=== PATIENT | female | born 1975 | race Caucasian/White ===

== ENCOUNTER 2018-02-26 01:46 | Emergency (ER) | payer OTHER ==
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
[2018-02-26 02:55] LABS: Urine Appearance Turbid; Urine Blood 1+ (Negative); Urine Color Yellow; Urine Ketones Negative (Negative); Urine Protein 2+(100 mg/dL) (Negative); Urine Red Blood Cell 3+(>10/hpf) (Absent); Urine Specific Gravity 1.023 (1.010-1.030); Urine Urobilinogen Negative (Negative); Urine White Blood Cell 3+(>20/hpf) (Absent)
[2018-02-26] MEDS ORDERED: Sulfamethox/Trimethoprim DS 800/160* TAB PO ONE (03:23)
[2018-02-26] MEDS ORDERED: Phenazopyridine TAB* 100 MG PO ONE (03:23)
[2018-02-26 04:04] VITALS: BP 127/79
--- NOTE | 2018-02-28 06:15 | PN ---
Progress Note - Progress Note Date of Service: 02/28/18 Note: patient urine culture grew E coli >100,000. patient placed on bactrim. will wait for final culture for sensitivity.
== END 2018-02-26 04:03 | disposition home or self-care (01) ==
LOC: ED 01:46
DX: N39.0 Urinary tract infection, site not specified (principal); B96.20 Unspecified Escherichia coli [E. coli] as the cause of diseases classified elsewhere
CPT/HCPCS: 81003; 81015; 87077; 87086; 87186; 99282; A9270-GY

== ENCOUNTER 2018-07-22 18:45 | Emergency (ER) | payer OTHER ==
[2018-07-22 19:42] LABS: ABS Basophils 0.1 10^3/ul (0-0.2); ABS Eosinophils 0.3 10^3/ul (0-0.6); ABS Lymphocytes 2.4 10^3/ul (1.0-4.8); ABS Monocytes 0.7 10^3/ul (0-0.8); ABS Neutrophils 5.3 10^3/ul (1.5-7.7); ABS Nucleated RBC 0 10^3/ul; Eosinophil % 3.1 %; Hematocrit 38 % (33-41); Hemoglobin 12.8 g/dL (12.0-16.0); Lymphocyte % 26.8 %; Mean Corpuscular HGB Conc 33 g/dL (31-36); Mean Corpuscular Hemoglobin 29 pg (27-31); Mean Corpuscular Volume 87 fL (80-97); Mean Platelet Volume 7.3 fL (7.4-10.4); Nucleated Red Blood Cells % 0; Platelet Count 231 10^3/uL (150-450); Red Cell Distribution Width 13 % (10.5-15); White Blood Count 8.8 10^3/uL (3.5-10.8)
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
[2018-07-22 20:03] LABS: Albumin 4.1 g/dL (3.2-5.2); Albumin/Globulin Ratio 1.4 (1-3); BUN/Creatinine Ratio 22.5 (8-20); Calcium 8.8 mg/dL (8.6-10.3); EGFR African American 110.3 (>60); EGFR Non-African American 91.2 (>60); Globulin 2.9 g/dL (2-4); Potassium 3.8 mmol/L (3.5-5.0); Total Bilirubin 0.5 mg/dL (0.2-1.0)
[2018-07-22 20:59] LABS: Urine Appearance Clear; Urine Bacteria Absent (Absent); Urine Bilirubin Negative (Negative); Urine Blood 3+ (Negative); Urine Color Yellow; Urine Glucose Negative (Negative); Urine Ketones Negative (Negative); Urine Nitrite Negative (Negative); Urine Protein Negative (Negative); Urine Red Blood Cell 3+(>10/hpf) (Absent); Urine Urobilinogen Negative (Negative); Urine White Blood Cell Trace(0-5/hpf) (Absent)
[2018-07-22 21:40] VITALS: BP 108/55
== END 2018-07-22 21:39 | disposition home or self-care (01) ==
LOC: ED 18:45
DX: O03.9 Complete or unspecified spontaneous abortion without complication (principal)
CPT/HCPCS: 36415; 76817; 80053; 81003; 81015; 84702; 85025; 86850; 86900; 86901; 87086; 99282